=== PATIENT | female | born 1960 | race Asian ===

== ENCOUNTER 2018-06-22 14:01 | Emergency (ER) | payer SELFPAY ==
[~2018-06-22] VITALS: Ht 162.6 cm; Wt 72.6 kg
[2018-06-22 14:35] VITALS: BP 117/62
== END 2018-06-22 15:46 | disposition home or self-care (01) ==
LOC: ER 14:04
DX: S29.011A Strain of muscle and tendon of front wall of thorax, initial encounter (principal); V43.52XA Car driver injured in collision with other type car in traffic accident, initial encounter; Y93.89 Activity, other specified; Y99.8 Other external cause status; Y92.410 Unspecified street and highway as the place of occurrence of the external cause
CPT/HCPCS: 71250; 72125; 74176; 81025